=== PATIENT | female | born 2005 | race Two or more races ===

== ENCOUNTER 2025-02-28 14:52 | Inpatient (IN) | payer OTHER ==
[~2025-02-28] VITALS: Ht 157.5 cm; Wt 53.5 kg
[~2025-02-28 14:52] MED LIST: CLEOCIN100 MG
--- NOTE | 2025-02-28 15:24 | NUR ---
PTE ALERTA Y ORIENTADA X3. REFIERE DOLOR DE KEVON HACE DOS LEONE Y SANGRADO VAGINAL PERSISTENTE HACE DOS SEMANAS. PTE REFIERE MAREOS Y REFIERE PADECER DE ANEMIA.
[2025-02-28 18:10] LABS: INR 1.08; PROTHROMBIN TIME 11.7 SECONDS (9.0-11.5)
[2025-02-28 18:11] LABS: CALCIUM 8.8 mg/dL (8.5-10.1); CREATININE SERUM 0.51 mg/dL (0.55-1.02); GFR 152.23; POTASSIUM 3.86 mEq/L (3.5-5.1)
[2025-02-28 18:28] LABS: BASO % 0.5 % (0.1-1.2); EOS # 0.11 (0.04-0.54); EOS % 1.8 % (0.7-7.0); LYMPH # 2.57 (1.18-3.74); LYMPH % 41.1 % (19.3-53.1); MEAN CORPUSCULAR HEMOGLOBIN 25.7 pg (25.6-32.2); MONO # 0.23 (0.24-0.82); MONO % 3.7 % (4.7-12.5); NEUT % 52.6 % (34.0-71.1); PLATELET COUNT 354 K/uL (163-369); RED BLOOD COUNT 2.76 M/uL (3.93-5.22); RED CELL DISTRIBUTION WIDTH 13.9 % (11.6-14.4)
[2025-02-28 18:35] LABS: PARTIAL THROMBOPLASTIN TIME < 20.0 SECONDS (22.0-34.0)
[2025-02-28 18:37] LABS: HEMATOCRIT 22.5 % (34.1-44.9); HEMOGLOBIN 7.1 g/dL (11.2-15.7)
[2025-02-28] MEDS ORDERED: 0.9 % SODIUM CHLORIDE 1,000 ML IV STA (19:26)
[2025-02-28] MEDS ORDERED: ACETAMINOPHEN 500 MG GEL..CAP PO ONE ×2 (20:49→21:15)
[2025-02-28] MEDS ORDERED: FAMOTIDINE/PF 20 MG/2 ML VIAL IV SCH (21:27)
[2025-02-28] MEDS ORDERED: ESTROGENS, CONJUGATED 25 MG VIAL IV ONE (21:30)
[2025-02-28] MEDS ORDERED: RINGERS SOLUTION,LACTATED 1,000 ML IV SCH (21:30)
[2025-02-28] MEDS ORDERED: BUTALB/ACETAMINOPHEN/CAFFEINE 1 TAB TABLET PO ONE ×2 (21:30→22:25)
--- NOTE | 2025-02-28 22:01 | NUR ---
SE REQUISAN #3 UNIDADES COMPLETAS ORDENADAS POR . SE REALIZA STACEY DA VERIFICAICON CON PACIENTE (NOMBRE CORRECTO Y FECHA DE NACIMIENTO CORRECTA). LA CUAL REFIERE TODO ESTA EN ORDEN. SE ENTREGA REQUISICION A LABORATORIO Y A BAN[place] (PEGUERO). LOS CUALES REFIEREN TODO ESTA CORRECTO CON REQUISICION. SE BEKAH COPIA Y CONSENTIMIENTO EN RECORD DE PACIENTE.
[2025-02-28] MEDS ORDERED: FAMOTIDINE/PF 20 MG/2 ML VIAL ONE (22:25)
[2025-03-01 00:12] VITALS: BP 103/67; O2SAT 100
[2025-03-01 02:12] VITALS: BP 111/72
[2025-03-01] MEDS ORDERED: PROMETHAZINE HCL 25 MG/ML AMPUL IV PRN (03:00)
[2025-03-01 08:00] VITALS: BP 88/60
[2025-03-01] MEDS ORDERED: ESTROGENS, CONJUGATED 25 MG in 0.9 % SODIUM CHLORIDE 50 ML IV SCH (09:00)
[2025-03-01 12:40] VITALS: BP 104/72
[2025-03-01 15:59] VITALS: BP 97/63
[2025-03-01] MEDS ORDERED: NAPROXEN 500 MG TABLET PO STA (19:27)
[2025-03-02 01:12] VITALS: BP 104/68
[2025-03-02 02:29] LABS: BASO % 0.4 % (0.1-1.2); EOS # 0.17 (0.04-0.54); EOS % 1.5 % (0.7-7.0); HEMOGLOBIN 10.4 g/dL (11.2-15.7); LYMPH % 23.9 % (19.3-53.1); MEAN CORPUSCULAR HEMOGLOBIN 26.9 pg (25.6-32.2); MONO # 0.58 (0.24-0.82); MONO % 5.1 % (4.7-12.5); NEUT # 7.76 (1.56-6.13); NEUT % 68.7 % (34.0-71.1); PLATELET COUNT 335 K/uL (163-369); RED BLOOD COUNT 3.87 M/uL (3.93-5.22); RED CELL DISTRIBUTION WIDTH 14.1 % (11.6-14.4)
[2025-03-02 08:14] VITALS: BP 90/54
[2025-03-02] MEDS ORDERED: NAPROXEN 500 MG TABLET PO SCH (09:00)
[2025-03-02] MEDS ORDERED: MAXFE CAPLET1 EAC1 PO (11:22)
== END 2025-03-02 12:38 | disposition home or self-care (01) | DRG 761 ==
LOC: ER 14:52 → OB/GYN 22:18
PROVIDERS: Emergency Medicine; ADMIT Obstetrics & Gynecology; ATTEND Obstetrics & Gynecology
PROC: BU4CZZZ Ultrasonography of Uterus and Ovaries (ICD-10-PCS; principal; 2025-02-28)
PROC: 30233N1 Transfusion of Nonautologous Red Blood Cells into Peripheral Vein, Percutaneous Approach (ICD-10-PCS; 2025-03-01)
DX: N93.9 Abnormal uterine and vaginal bleeding, unspecified (principal); D64.9 Anemia, unspecified